=== PATIENT | male | born 1940 | race Caucasian/White ===

== ENCOUNTER 2017-08-07 12:08 | Outpatient (CLI) | payer OTHER | END 2017-08-07 12:19 | disposition home or self-care (01) | LOC: LAB 12:08 | DX: N30.00 Acute cystitis without hematuria (principal) ==

== ENCOUNTER → 2017-09-26 | Outpatient (CLI) | payer OTHER ==
[~2017-09-26] VITALS: Ht 182.9 cm; Wt 88.0 kg
== END | disposition home or self-care (01) ==
LOC: OFIC 805 08:06
DX: J31.0 Chronic rhinitis (principal); R49.0 Dysphonia

== ENCOUNTER → 2017-10-10 08:00 | Outpatient (CLI) | payer OTHER ==
[~2017-10-10] VITALS: Ht 182.9 cm; Wt 87.1 kg
[~2017-10-10 08:00] MED LIST: AMILODIPINE PO; ASPIR-LOW81 MG PO; COZAAR50 MG PO; HYDROCHLOROTHIA25 MG PO; ICAPS AREDS FO1 EACH PO; ZOCOR20 MG PO; ZYRTEC10 MG PO
== END | disposition home or self-care (01) ==
LOC: RAD 08:00 → LAB 08:00 → SURH 10-16 07:00 → EDSTATUS 10-16 08:00 → SURH 10-16 08:00
DX: M17.11 Unilateral primary osteoarthritis, right knee (principal); Z01.818 Encounter for other preprocedural examination; Z01.812 Encounter for preprocedural laboratory examination; Z01.810 Encounter for preprocedural cardiovascular examination

== ENCOUNTER 2018-03-02 08:17 | Outpatient (CLI) | payer OTHER | END 2018-03-02 08:20 | disposition home or self-care (01) | LOC: SONOGRAMA 08:17 | DX: D75.1 Secondary polycythemia (principal); R97.0 Elevated carcinoembryonic antigen [CEA]; D51.3 Other dietary vitamin B12 deficiency anemia; G47.33 Obstructive sleep apnea (adult) (pediatric); Z72.821 Inadequate sleep hygiene; I10 Essential (primary) hypertension; N40.1 Benign prostatic hyperplasia with lower urinary tract symptoms; M15.0 Primary generalized (osteo)arthritis; E55.9 Vitamin D deficiency, unspecified; N20.0 Calculus of kidney; R63.4 Abnormal weight loss; I45.5 Other specified heart block; Z95.0 Presence of cardiac pacemaker; I49.8 Other specified cardiac arrhythmias ==

== ENCOUNTER 2019-10-09 11:37 | Inpatient (IN) | payer OTHER ==
[~2019-10-09] VITALS: Ht 170.2 cm; Wt 81.6 kg
--- NOTE | 2019-10-09 12:15 | NUR ---
SE RECIBE PTE. MASCULINO ALERTA CONCIENTE Y ORIENTADO EN [place] ACOMPANADO POR FAMILIARES. PTE. CON FERIDO MEDICO DE LA MAUR[place]. CRISTAL GALLOWAY POR HEMOGLOBINA BAJA EN 8.9 LABORATORIO REALIZADO EL . PTE. REF DEBILIDAD GENERALIZDA CANSANCION. SE PASA A AREA DE OBSERVACION
--- NOTE | 2019-10-09 13:40 | NUR ---
PACIENTE EVALUADO PRO EL DR. PRINCE S ETOMAMUESTARS DENSAGRE SE CANALIZA PACIENTE EN BRAZO DERECO CON ANGIO #18 SE SARAH TUBOS PILOTOS Y LLEVADO S ABANDO DE KEVEN PARA 2 UNIDADES PRBC EN HOLD . SE MARIA G EN OBSERVCION PO RCAMBIOS EN LOOMIS CONDICON.
== END 2019-10-12 15:42 | disposition left against medical advice (07) | DRG 812 ==
LOC: ER 11:37 → SEC-K 15:18 → SURH 15:18
PROVIDERS: ADMIT Internal Medicine Geriatric Medicine; ATTEND Internal Medicine Geriatric Medicine
PROC: 05HY33Z Insertion of Infusion Device into Upper Vein, Percutaneous Approach (ICD-10-PCS; principal; 2019-10-09)
PROC: 30243N1 Transfusion of Nonautologous Red Blood Cells into Central Vein, Percutaneous Approach (ICD-10-PCS; 2019-10-10)
DX: D64.89 Other specified anemias (principal); D63.0 Anemia in neoplastic disease; I25.10 Atherosclerotic heart disease of native coronary artery without angina pectoris; I11.9 Hypertensive heart disease without heart failure; K72.90 Hepatic failure, unspecified without coma; E03.8 Other specified hypothyroidism; E78.49 Other hyperlipidemia; Z95.0 Presence of cardiac pacemaker; Z92.21 Personal history of antineoplastic chemotherapy; Z85.05 Personal history of malignant neoplasm of liver

== ENCOUNTER 2019-10-25 15:26 | Emergency (ER) | payer OTHER ==
[~2019-10-25] VITALS: Ht 188 cm; Wt 68.0 kg
== END 2019-10-25 18:11 | disposition home or self-care (01) ==
LOC: ER 15:26
DX: T82.898A Other specified complication of vascular prosthetic devices, implants and grafts, initial encounter (principal)